=== PATIENT | male | born 1960 | race Caucasian/White ===

== ENCOUNTER → 2016-11-19 | Day surgery (SDC) | payer BC ==
[~2016-11-19] VITALS: Ht 180.3 cm; Wt 77.9 kg
[~2016-11-19] MED LIST: ADVIL200 M1 PO; AFRIN) (GENASAL15 ML TOP; ASPIRIN EC81 MG PO; ASPIRIN LO-DOSE81 MG PO; BACITRACIN OINT30 GM TOP; CARAFATE1 GM PO; CLEOCIN PE75 MG/5 ML PO; CLEOCIN150 MG PO; COREG 3.1253.125 MG PO; COZAAR100 MG PO; COZAAR25 MG PO; FEOSOL325 MG PO; HYDRODIURIL25 MG PO; HYZAAR 100-12.1 EACH PO; HYZAAR 100-251 EACH PO; KLONOPIN0.5 MG PO; LORTAB ELIXI15 ML/UD PO; LOSARTAN POTAS100 MG PO; MULTI-VITAMIN1 EAC1 PO; NEURONTIN250 MG/51; NEURONTIN250 MG/51 PO; NEURONTIN300 MG PO; NEURONTIN400 MG PO; NORVASC5 MG PO; OCEAN NASAL) (A44 ML NOSE; PERCOCET 5-3251 EACH PO; PERIDEX15 ML PO; PROTONIX40 MG PO; TRIAMCINOLONE A15 G2 TOP; VISINE DPS)(GEN15 ML OPHTH; ZANTAC300 MG
== END | disposition disaster alternative care site (69) ==
LOC: GPOC 11-15 09:00 → GEND 06:58
PROC: 0DB68ZX Excision of Stomach, Via Natural or Artificial Opening Endoscopic, Diagnostic (ICD-10-PCS; principal; 2016-11-19)
DX: K20.9 Esophagitis, unspecified (principal); K44.9 Diaphragmatic hernia without obstruction or gangrene; K22.70 Barrett's esophagus without dysplasia; K21.9 Gastro-esophageal reflux disease without esophagitis; I10 Essential (primary) hypertension; E78.00 Pure hypercholesterolemia, unspecified; D64.9 Anemia, unspecified; Z98.890 Other specified postprocedural states; Z79.82 Long term (current) use of aspirin; Z79.899 Other long term (current) drug therapy
CPT/HCPCS: J2001; J7030